=== PATIENT | male | born 1970 | race Caucasian/White ===

== ENCOUNTER → 2017-07-04 | Outpatient (CLI) | payer BC ==
[~2017-07-04] MED LIST: ADAL1KIT SUBD; CETI10TA10 PO; CHOL2000 PO; MESA800T6 PO; MULT-506 PO; PANT40TA PO; PRD/25 PO
== END | disposition home or self-care (01) ==
LOC: C.MAMM 08:33
PROVIDERS: ATTEND Internal Medicine
DX: Z79.52 Long term (current) use of systemic steroids (principal); M85.89 Other specified disorders of bone density and structure, multiple sites